=== PATIENT | female | born 1985 | race Caucasian/White ===

== ENCOUNTER 2019-03-10 08:20 | Inpatient (IN) | payer OTHER ==
[~2019-03-10] VITALS: Ht 169 cm; Wt 83.0 kg
[2019-03-10] MEDS ORDERED: RINGERS SOLUTION,LACTATED 1,000 ML IV PRN (08:27)
[2019-03-10] MEDS ORDERED: OXYTOCIN 30 UNITS/LACT RINGERS 500 ML IV ONE (08:27)
[2019-03-10] MEDS ORDERED: METOCLOPRAMIDE HCL 5 MG/ML 2 ML VIAL IVP PRN (08:30)
[2019-03-10] MEDS ORDERED: FentaNYL CITRATE-PF 100 MCG/2 ML VIAL IVP PRN (08:30)
[2019-03-10] MEDS ORDERED: LIDOCAINE/PF 1% 30 ML VIAL INJ PRN (08:30)
[2019-03-10] MEDS ORDERED: CITRIC ACID/SODIUM CITRATE 30 ML SOLUTION UDCUP PO PRN (08:30)
[2019-03-10] MEDS: RINGERS SOLUTION,LACTATED 1,000 ML IV SCH ×3 (08:53→15:57)
[2019-03-10 09:01] VITALS: BP 111/75
[2019-03-10 09:05] LABS: BASOPHILS % (AUTO) 0.7 % (0.0-2.0); EOSINOPHILS % (AUTO) 1.3 % (1.0-6.0); HEMATOCRIT 39.1 % (36-46); LYMPHOCYTES # (AUTO) 1.5 K/uL (1.0-4.8); LYMPHOCYTES % (AUTO) 16.6 % (22.0-44.0); MEAN CORPUSCULAR HEMOGLOBIN 32.5 pg (26.0-34.0); MEAN CORPUSCULAR HGB CONC 33.3 G/dL (31.0-37.0); MEAN CORPUSCULAR VOLUME 98 fL (80-100); MONOCYTES # (AUTO) 0.6 K/uL (0.1-1.0); NEUTROPHILS # (AUTO) 6.6 K/uL (1.8-7.7); NEUTROPHILS % (AUTO) 74.4 % (40.0-70.0); PLATELET COUNT (AUTO) 158 K/uL (150-450); RED BLOOD CELL COUNT(AUTO) 4.01 MIL/uL (4.00-5.20); RED CELL DISTRIBUTION WIDTH 13.4 % (11.5-14.5)
[2019-03-10] MEDS ORDERED: DINOPROSTONE 10 MG VAGINAL SUPPOSITORY VG ONE (09:30)
[2019-03-10] MEDS ORDERED: LACT1CAP75 PO (09:56)
[2019-03-10] MEDS ORDERED: ASCO500C18 PO (09:56)
[2019-03-10] MEDS ORDERED: PREN1TAB80 PO (09:56)
[2019-03-10] MEDS ORDERED: DOCO100C3 PO (09:56)
[2019-03-10] MEDS ORDERED: OXYGEN THERAPY IH SCH (20:00)
[2019-03-10] MEDS ORDERED: MISOPROSTOL 50 MCG TABLET PO ONE (21:30)
[2019-03-10] MEDS ORDERED: -PHARMACY NOTE- MISC ONE (21:30)
[2019-03-11] MEDS: RINGERS SOLUTION,LACTATED 1,000 ML IV SCH ×5 (00:57→23:32)
[2019-03-11] MEDS ORDERED: MISOPROSTOL 50 MCG TABLET VG ONE (01:30)
[2019-03-11] MEDS ORDERED: OXYTOCIN 30 UNITS/LACT RINGERS 500 ML IV PRN (04:46)
[2019-03-11] MEDS ORDERED: ROPIVACAINE HCL/PF 0.2% 100 ML ED ONE (13:38)
[2019-03-11] MEDS ORDERED: LIDOCAINE/PF 2% 5 ML VIAL ONE (13:38)
[2019-03-11] MEDS ORDERED: DiphenhydrAMINE HCL 50 MG/ML VIAL IVP PRN (15:15)
[2019-03-11] MEDS ORDERED: ONDANSETRON HCL 4 MG/2 ML VIAL IVP PRN (15:15)
[2019-03-11] MEDS ORDERED: NALBUPHINE HCL 10 MG/ML VIAL IVP PRN (15:15)
[2019-03-12] MEDS: ROPIVACAINE HCL/PF 0.2% 100 ML ED PRN ×2 (02:47→07:31)
[2019-03-12] MEDS: RINGERS SOLUTION,LACTATED 1,000 ML IV SCH ×2 (07:30→11:42)
[2019-03-12] MEDS ORDERED: ACETAMINOPHEN 650 MG RECTAL SUPPOSITORY PR ONE ×2 (09:15)
[2019-03-12] MEDS ORDERED: MINERAL OIL 30 ML UDCUP VG ONE (10:00)
[2019-03-12] MEDS ORDERED: OXYTOCIN 20 UNITS/LACT RINGERS 1,000 ML IV ONE (12:36)
[2019-03-12] MEDS ORDERED: METHYLERGONOVINE MALEATE 0.2 MG/ML VIAL IM ONE (13:00)
[2019-03-12] MEDS ORDERED: OXYTOCIN 20 UNITS/LACT RINGERS 1,000 ML IV SCH (13:04)
[2019-03-12] MEDS ORDERED: LANOLIN 7 GM OINTMENT TP PRN (13:15)
[2019-03-12] MEDS ORDERED: GLYCERIN/WITCH HAZEL LEAF 40 PADS JAR TP PRN (13:15)
[2019-03-12] MEDS ORDERED: BENZOCAINE 20%/MENTHOL 56 GM SPRAY CANISTER TP PRN (13:15)
[2019-03-12] MEDS ORDERED: MAGNESIUM HYDROXIDE SUSPENSION 30 ML UDCUP PO PRN (13:15)
[2019-03-12] MEDS ORDERED: SENNA/DOCUSATE SODIUM 8.6-50 MG TABLET PO PRN (13:15)
[2019-03-12] MEDS: ACETAMINOPHEN/CODEINE 300-30 MG TABLET PO PRN ×2 (13:31→16:45)
[2019-03-12] MEDS: IBUPROFEN 600 MG TABLET PO PRN ×2 (13:31→19:49)
[2019-03-13] MEDS: IBUPROFEN 600 MG TABLET PO PRN ×2 (01:49→14:02)
[2019-03-13 06:37] LABS: BASOPHILS % (AUTO) 0.3 % (0.0-2.0); EOSINOPHILS % (AUTO) 1.2 % (1.0-6.0); HEMATOCRIT 31.6 % (36-46); HEMOGLOBIN 10.3 g/dL (12.0-16.0); LYMPHOCYTES # (AUTO) 1.1 K/uL (1.0-4.8); LYMPHOCYTES % (AUTO) 6.6 % (22.0-44.0); MEAN CORPUSCULAR HEMOGLOBIN 32.6 pg (26.0-34.0); MEAN CORPUSCULAR HGB CONC 32.5 G/dL (31.0-37.0); MEAN CORPUSCULAR VOLUME 100 fL (80-100); MONOCYTES # (AUTO) 0.7 K/uL (0.1-1.0); MONOCYTES % (AUTO) 4.3 % (2.0-9.0); NEUTROPHILS # (AUTO) 14.3 K/uL (1.8-7.7); RED BLOOD CELL COUNT(AUTO) 3.15 MIL/uL (4.00-5.20); RED CELL DISTRIBUTION WIDTH 13.8 % (11.5-14.5)
[2019-03-13 07:13] LABS: NEUTROPHILS % (AUTO) 87.6 % (40.0-70.0); PLATELET COUNT (AUTO)-OB 96 K/uL (150-450)
[2019-03-13] MEDS ORDERED: IBUP-2070 PO (12:59)
[2019-03-13] MEDS: ACETAMINOPHEN/CODEINE 300-30 MG TABLET PO PRN (14:02)
== END 2019-03-13 13:15 | disposition home or self-care (01) | DRG 807 ==
LOC: 4S 08:20 → OBSVTOIN 08:20
PROVIDERS: ADMIT Obstetrics & Gynecology; ATTEND Obstetrics & Gynecology
PROC: 10E0XZZ Delivery of Products of Conception, External Approach (ICD-10-PCS; principal; 2019-03-12)
PROC: 0W8NXZZ Division of Female Perineum, External Approach (ICD-10-PCS; 2019-03-12)
PROC: 3E0R3BZ Introduction of Anesthetic Agent into Spinal Canal, Percutaneous Approach (ICD-10-PCS; 2019-03-12)
PROC: 00HU33Z Insertion of Infusion Device into Spinal Canal, Percutaneous Approach (ICD-10-PCS; 2019-03-12)
DX: O77.0 Labor and delivery complicated by meconium in amniotic fluid (principal); Z37.0 Single live birth; Z3A.41 41 weeks gestation of pregnancy
CPT/HCPCS: 86850; 86900; 86901; J2210; J2590; J2795; J3490; J7120